=== PATIENT | male | born 1995 | race Caucasian/White ===

== ENCOUNTER 2023-04-19 20:37 | Emergency (ER) | payer OTHER ==
[2023-04-19] MEDS ORDERED: Albuterol HFA 18 Gm Inhaler INH PRN (20:53)
== END 2023-04-19 21:00 ==
LOC: VM.ED 20:37
DX: Z02.89 Encounter for other administrative examinations (principal); J45.909 Unspecified asthma, uncomplicated
CPT/HCPCS: 99283; A9270